=== PATIENT | male | born 1935 | race Caucasian/White ===

== ENCOUNTER 2018-10-23 08:17 | Day surgery (SDC) | payer OTHER, MEDICARE ==
[2018-10-17 13:17] VITALS: BMI 28.2
[2018-10-23] MEDS: CIPROFLOXACIN 0.3% EYE DROPS 5 ML BOTTLE ONE ×3 (09:10→09:20)
[2018-10-23] MEDS: TROPICAMIDE 1% OPHTH SOLN 15 ML BOTTLE ONE ×3 (09:10→09:20)
[2018-10-23] MEDS: PHENYLEPHRINE 2.5% OPHTH SOLN 15 ML BOTTLE ONE ×3 (09:10→09:20)
[2018-10-23] MEDS: CYCLOPENTOLATE 2% OPHTH SOLN 2 ML BOTTLE ONE ×3 (09:10→09:20)
[2018-10-23] MEDS ORDERED: BSS (NA/CA/MG/K) BALANCED SALT SOLUTION OPHTH SOLN 15 ML BOTTLE ONE (09:38)
[2018-10-23] MEDS ORDERED: LIDOCAINE 1% P/F 10 MG/ML VIAL ONE (09:38)
[2018-10-23] MEDS ORDERED: NEO/POLYMYX B SULF/DEXAMETH OPHTHALMIC 5ML BOTTLE ONE (09:39)
[2018-10-23] MEDS ORDERED: CARBACHOL 0.01% INTRA-OCULAR 1.5 ML VIAL ONE (09:39)
[2018-10-23] MEDS ORDERED: MIDAZOLAM HCL 2 MG/2 ML SINGLE DOSE VIAL ONE (09:53)
[2018-10-23] MEDS ORDERED: HYDROCORTISONE SOD SUCCINATE 2 ML ONE (10:40)
[2018-10-23 11:09] VITALS: PULSE 52; TEMP 98.5
[2018-10-23 11:40] VITALS: BP 164/66
--- NOTE | 2018-10-24 07:58 | OP ---
DATE OF OPERATION: 10/23/2018 OPERATIVE PROCEDURE: Lens Phacoemulsification with Posterior Chamber Intraocular Lens Placement, Right Eye PREOPERATIVE DIAGNOSIS: Visually Significant Cataract of Right Eye POSTOPERATIVE DIAGNOSIS: Visually Significant Cataract of Right Eye SURGEON: Edmar Marcos M.D. ANESTHESIA: MAC PROCEDURE: The patient was brought to the operating room and placed under monitored anesthesia care by Anesthesia. A drop of Tetracaine was then placed over the right eye. The patient was then prepped and draped in the usual sterile manner. A speculum was then placed over the right eye. The eye was then well irrigated with copious amounts of BSS (balanced salt solution). The operating microscope was then moved into position. A paracentesis was performed using a 15 degree blade. At this point 0.5 mL of 1% preservative free-lidocaine was injected into the anterior chamber. Amvisc plus was then injected into the anterior chamber. A clear corneal incision was then formed using a 2.2 mm keratome. A capsulorrhexis was then performed in a continuous circular fashion beginning with a cystotome completed with an Utratas forceps. Hydrodissection was then performed using BSS on a cannula. The phaco probe was then introduced through the corneal wound and the cataract was removed using the phaco chop technique. Approximately 3 seconds of absolute phaco time was used. The remaining cortex was then removed using irrigation and aspiration with an I/A probe. The capsule was then filled with regular Amvisc and the capsule was noted to be intact. A previously selected foldable posterior chamber intraocular lens was then injected into the capsule through the corneal wound using a lens injector. It was then dialed into position using a Sinskey hook. The Amvisc was then removed using irrigation and aspiration. Miostat was then injected through the paracentesis to constrict the pupil. The paracentesis and corneal wound were then hydrated and noted to be water tight. A drop of Maxitrol was then placed over the eye. The speculum was removed and clear shield was taped over the eye. The patient tolerated the procedure well and there were no surgical complications. The patient was asked to follow up in my office the next day. EDMAR MARCOS M.D. [id number]
== END 2018-10-23 11:46 | disposition home or self-care (01) ==
LOC: FASU 08:17
PROVIDERS: ATTEND Ophthalmology
PROC: 08RJ3JZ Replacement of Right Lens with Synthetic Substitute, Percutaneous Approach (ICD-10-PCS; principal; 2018-10-23 10:31)
DX: H26.8 Other specified cataract (principal)
CPT/HCPCS: 82962